=== PATIENT | female | born 1970 | race Caucasian/White ===

== ENCOUNTER 2024-03-12 09:01 | Outpatient (CLI) | payer OTHER, SELFPAY ==
[2024-03-12 09:31] VITALS: BMI 38.0
[2024-03-12 09:39] VITALS: BP 128/91; PULSE 83; RESP 18; TEMP 36.6; O2SAT 94
[2024-03-12] MEDS: METOPROLOL TARTRATE 25MG TABLET 25 MG (09:41)
[2024-03-12] MEDS: METOPROLOL TARTRATE 50MG TABLET 50 MG (09:41)
[2024-03-12] MEDS: IVABRADINE HCL 7.5MG TABLET 15 MG PO (09:41)
[2024-03-12 09:59] LABS: Chloride 103 mmol/L (98-107); Potassium 4.1 mmoL/L (3.5-5.1); Sodium 138 mmol/L (136-145)
[2024-03-12 10:02] LABS: Anion Gap 8.1 mEq/L (5-15); Blood Urea Nitrogen 8 mg/dl (7-17); Carbon Dioxide 31 mmol/L (22.0-30.0); Creatinine Clearance Estimated 163 mL/min (50-200); Estimated Glomerular Filt Rate 87 ml/min (>60); GFR (African American) 105 ML/MIN (>60); Glucose 184 mg/dl (74-100)
[2024-03-12 10:42] VITALS: PULSE 70
[2024-03-12] MEDS: METOPROLOL TARTRATE 50MG TABLET *IVABRADINE+METOPROLOL REGIMINE 50 MG PO (10:42)
[2024-03-12] MEDS: SODIUM CHLORIDE 0.9% 10ML SYR (RAD ONLY) 10 ML IV (12:04)
[2024-03-12] MEDS: 0.9 % SODIUM CHLORIDE 50 ML VIAL IV (12:04)
[2024-03-12] MEDS: IOPAMIDOL-370 (76%);100ML BOTTLE 85 ML IV (12:04)
[2024-03-12] MEDS: NITROGLYCERIN 0.4MG SL TABLET 0.8 MG SL (12:08)
== END 2024-03-12 12:00 | disposition home or self-care (01) ==
PROVIDERS: PCP Registered Nurse; Visit Provider Registered Nurse
DX: R07.9 Chest pain, unspecified (principal)
CPT/HCPCS: 75574; 80048; Q9967

== ENCOUNTER 2024-09-17 10:03 | Day surgery (SDC) | payer OTHER, SELFPAY ==
[2024-09-17 10:23] VITALS: BP 138/67; PULSE 86; RESP 16; TEMP 36.6; O2SAT 92; BMI 39.2
--- NOTE | 2024-09-17 10:34 | P.PCN_ITS ---
Procedure Date: 09/17/24 Time: 11:05 Anesthesiologist:: Toshia Flaherty APRN Complications:: None Pre-procedure Diagnosis:: Degenerative disc disease of lumbar spine with lumbar radiculopathy symptoms Post-procedure Diagnosis:: Same Indications for Procedure:: Patient is a pleasant 53-year-old female who presents today for intrathecal refill and reprogram as well as new patient to our office. Patient is a transfer from [facility] office that was previously in [place]. Today she rates her pain a 6 out of 10. She denies any new trauma or injury. She does state that she has longstanding chronic back pain both in her neck and her low back. She states she had 4 previous back surgeries and then had a disc surgery in her cervical spine. She states there was even a period of 8 months where she could not even walk. She does state that the pump has been a game changer and she would not be able to survive without it. Patient does make mention when she had her intrathecal pain pump trial she was very sensitive to the opioid medication and was told she was opioid na?ve. Patient states that even after she had her pump implanted she was very sick even with the starting dose. Patient is on very low dose of her pump medication and states this works well for her. Patient does state that it has been a while since she has had her pump refilled and believes that is a good reason why her pain is the 6 out of 10 today. She states that she cannot tell a difference when her pump medication needs to be refilled. Patient has not been refilled since around March 2024. She is currently managed with morphine 1 mg/mL with a daily dose of 0.05 mg/day. She denies any side effects from this medication. Her Ky was unavailable at today's visit. Physical Exam: General: Alert and oriented x3, no acute distress, pleasant and cooperative Lungs: Respirations even and unlabored, symmetrical chest expansion Eyes: PERRL Musculoskeletal: Flexion and extension of lumbar [spine] somewhat guarded secondary to pain, [antalgic gait noted] Neurological: Speech clear, no gross sensory deficit Procedure Details:: Informed consent was obtained and the risk and benefits of the procedure were explained to the patient. The patient had noninvasive monitoring placed including noninvasive blood pressure cuff and pulse oximeter. Patient's pump was interrogated. The area over the pump was cleansed with chlorhexidine as a cleansing solution. In sterile fashion the pump was accessed with a 22-gauge needle. Approximately 9.3 mls of the pump solution was removed and discarded appropriately. The pump was then refilled with 20 mL's of morphine 1 mg/mL. The needle was withdrawn and a bandage was placed over the puncture site. The infusion rate was reprogrammed and continued at morphine 0.05 mg/day. The patient tolerated well with no complication. Plan and Disposition:: Patient tolerated the procedure well with no complications and was discharged neurologically intact. I will order the patient a compounded cream. Patient will return to clinic on or before their next intrathecal refill date. We will see the patient back in the clinic at the next intrathecal refill. Patient has been instructed to contact the clinic with any concerns before the next appointment. Dr. Goodrich has reviewed this note and agrees with this plan of care. This note was dictated using voice recognition software and make contain errors or omissions. -- It Is medically necessary for this patient to continue to have their intrathecal pump refilled at regular intervals. This patient had an intrathecal pain pump implanted after meeting criteria of chronic intractable pain for greater than 3 months and failing conservative treatments. Patient has committed and been compliant to the treatment plan and all planned follow up care. Since implantation of the intrathecal pain pump, the patient has had decreased pain and been more functional. Oral medications have been reduced including intake of oral opioids. Patient continues to do well with intrathecal therapy with decrease in pain symptoms and increase in functional status. Stopping intrathecal medications can lead to life threatening withdrawal, seizures, cardiac arrest, severe pain, and possible . Pumps that are not refilled at regular intervals can be damages and cause and need for replacement. We continua lly titrate dose and concentration to optimize pain relief and function. We are limited in concentration for certain drugs to safely deliver medications through the pump and stay within the recommendations from the Polyanalgesic Consensus Committee Guidelines. Depending on dose and concentration these pumps may need to be refilled sooner than 3 months as we titrate. A UDS is needed to verify patient's compliance with our office pain contract. This is ordered based off specific treatments related to chronic pain with the potential to abuse certain medications.
[2024-09-17 10:44] VITALS: BP 141/78; PULSE 88; RESP 18; O2SAT 93
[2024-09-17 10:55] VITALS: BP 141/78; PULSE 88; RESP 18; O2SAT 93
[2024-09-17 11:13] VITALS: BP 137/67; PULSE 82; RESP 16; O2SAT 90
== END 2024-09-17 11:13 | disposition home or self-care (01) ==
PROVIDERS: Visit Provider Nurse Practitioner Family
DX: M51.16 Intervertebral disc disorders with radiculopathy, lumbar region (principal)
CPT/HCPCS: 62370; 99202; G0463

== ENCOUNTER 2024-12-24 08:48 | Day surgery (SDC) | payer OTHER, SELFPAY ==
--- NOTE | 2024-12-24 08:51 | P.HP_ITS ---
History of Present Illness *Admission Date: 12/24/24 *Reason for visit:: Intrathecal refill; DDD *History of present illness: Degenerative disc disease [facility] Disclaimer: The information contained in this section may have been updated after the patient was seen, as this information can be updated by other users. Medical History (Updated 12/24/24 @ 08:53 by Toshia Flaherty APRN) Trigger finger of right hand Trigger finger of right thumb Hyperlipidemia Surgical History History of lumbar fusion History of hysterectomy History of thyroidectomy, total History of cholecystectomy History of section Family History Father History of CAD (coronary artery disease) Mother Family history of hypertension Mother Family history of hyperlipidemia Social History Smoking Status: Former smoker alcohol intake: never current occupational status: employed Travel in the last 8 weeks?: None Have you lived/traveled outside [place] in past 30 days?: No Contact w/someone who lives/traveled outside [place] past 30 days?: No Exposure to someone with infectious disease in past 14 days?: No Do you have a fever (greater than 100.4 F or 38 C)?: No Have you tested positive for COVID-19?: No Exposed to someone with COVID-19 in past 14 days?: No Do you have a sore throat?: No Do you have a cough?: No Do you have any weakness?: No Do you have any diarrhea?: No Are you experiencing any unusual bleeding?: No Do you have any muscle aches/pain?: No Do you have any abdominal pain?: No Are you experiencing loss of taste or smell?: No Other Medical History Have you received the Flu Vaccine for this season: No Have you received the Pneumonia Vaccine: No Review of Systems Review of Systems Review of systems:: pertinent systems reviewed and negative unless documented below Review of systems (narrative): Review of Systems: General: No recent weight changes, no fever, no sleep disturbances Respiratory: No cough, no shortness of air, no recurring pulmonary infections Cardiovascular/peripheral vascular: No chest pain, no palpitations, no edema, no shortness of breath Gastrointestinal: No new onset incontinence, normal bowel movements reported Genitourinary: No new onset incontinence Musculoskeletal: Chronic back pain Psychiatric: [Normal mood/affect] Neurological: [Denies weakness in extremities], [denies balance issues] Meds Home Medications and Allergies Home Medications ?Medication ?Instructions ?Recorded ?Confirmed ?Type levothyroxine 300 mcg tablet 300 mcg PO DAILY 03/12/24 09/17/24 History (Synthroid) rosuvastatin 20 mg tablet 20 mg PO DAILY 03/12/24 09/17/24 History New Prescriptions to Start Prescriptions: Allergies Allergy/AdvReac Type Severity Reaction Status Date / Time amoxicillin (From Augmentin) Allergy Severe Hives Verified 03/12/24 10:08 avocado Allergy Severe Hives Verified 03/12/24 10:08 clavulanic acid (From Allergy Severe Hives Verified 03/12/24 10:08 Augmentin) Exam Constitutional Constitutional: no acute distress *Routine HEENT Exam Head: Present normocephalic and atraumatic Eye: Present PERRL ENT: Present mucous membranes moist *Routine Neck Exam Neck: Present supple *Routine Respiratory Exam Respiratory: Present CTA bilaterally *Routine Cardiovascular Exam Cardiovascular: Present RRR *Routine Abdominal Exam Abdominal: Present soft *Routine Rectal Exam Rectal:: deferred *Routine Genitalia Exam Genitalia:: normal female Routine Back/Spine/Pelvis Exam Back/Spine: Present pain with flexion *Routine Skin Exam Skin: Present intact and warm *Routine Neurological Exam Neurological: Present alert and oriented X3 Routine Psychiatric Exam Psychiatric: Present normal affect Assessment and Plan *Assessment and plan (1) Chronic pain syndrome: Status: Acute Category: Medical Code(s): G89.4 - Chronic pain syndrome (2) Degenerative disc disease: Status: Acute Category: Medical Plan Patient has been instructed to contact the clinic with any concerns before the next appointment. Dr. Goodrich has reviewed this note and agrees with this plan of care. This note was dictated using voice recognition software and make contain errors or omissions. All injections are used with Lidocaine, Bupivacaine and dexamethasone. Occasionally urine drug screen is needed to verify patient's compliance with our office pain contract. This is ordered based off specific treatments related to chronic pain with the potential to abuse certain medications.
--- NOTE | 2024-12-24 08:53 | P.PCN_ITS ---
Procedure Date: 12/24/24 Time: 09:11 Anesthesiologist:: Toshia Flaherty APRN Complications:: None Pre-procedure Diagnosis:: Degenerative disc disease of lumbar spine history of lumbar fusion, chronic pain syndrome Post-procedure Diagnosis:: Same Indications for Procedure:: Patient is a pleasant 54-year-old female who presents today for intrathecal refill and reprogram. Today she rates her pain today 7 out of 10. She denies any new trauma or injury. She does state that she would like some adjustment if possible however in the past she has been very sensitive to this medication and only wants to go up a very small amount. Patient is currently managed with morphine 1 mg/mL with a daily dose of 0.05 mg/day. She denies any side effects to that medication. Her Ky is currently not available. Physical Exam: General: Alert and oriented x3, no acute distress, pleasant and cooperative Lungs: Respirations even and unlabored, symmetrical chest expansion Eyes: PERRL Musculoskeletal: Flexion and extension of lumbar [spine] somewhat guarded secondary to pain, [antalgic gait noted] Neurological: Speech clear, no gross sensory deficit Procedure Details:: Informed consent was obtained and the risk and benefits of the procedure were explained to the patient. The patient had noninvasive monitoring placed including noninvasive blood pressure cuff and pulse oximeter. Patient's pump was interrogated. The area over the pump was cleansed with chlorhexidine as a cleansing solution. In sterile fashion the pump was accessed with a 22-gauge needle. Approximately 14.4 mls of the pump solution was removed and discarded appropriately. The pump was then refilled with 20 mL's of morphine 1 mg/mL. The needle was withdrawn and a bandage was placed over the puncture site. The infusion rate was reprogrammed and increased 2% morphine 0.051 mg/day. The patient tolerated well with no complication. Plan and Disposition:: Patient tolerated the procedure well with no complications and was discharged neurologically intact. Patient will return to clinic on or before their next intrathecal refill date. We will see the patient back in the clinic at the next intrathecal refill. Jennifer ent has been instructed to contact the clinic with any concerns before the next appointment. Dr. Goodrich has reviewed this note and agrees with this plan of care. This note was dictated using voice recognition software and make contain errors or omissions. -- It Is medically necessary for this patient to continue to have their intrathecal pump refilled at regular intervals. This patient had an intrathecal pain pump implanted after meeting criteria of chronic intractable pain for greater than 3 months and failing conservative treatments. Patient has committed and been compliant to the treatment plan and all planned follow up care. Since implantation of the intrathecal pain pump, the patient has had decreased pain and been more functional. Oral medications have been reduced including intake of oral opioids. Patient continues to do well with intrathecal therapy with decrease in pain symptoms and increase in functional status. Stopping intrathecal medications can lead to life threatening withdrawal, seizures, cardiac arrest, severe pain, and possible . Pumps that are not refilled at regular intervals can be damages and cause and need for replacement. We continually titrate dose and concentration to optimize pain relief and function. We are limited in concentration for certain drugs to safely deliver medications through the pump and stay within the recommendations from the Polyanalgesic Consensus Committee Guidelines. Depending on dose and concentration these pumps may need to be refilled sooner than 3 months as we titrate. A UDS is needed to verify patient's compliance with our office pain contract. This is ordered based off specific treatments related to chronic pain with the potential to abuse certain medications.
[2024-12-24 08:59] VITALS: BP 129/55; BP 141/83; PULSE 85; PULSE 87; RESP 16; RESP 18; O2SAT 91; O2SAT 95; BMI 39.2
[2024-12-24 09:16] VITALS: BP 120/71; PULSE 79; RESP 16; O2SAT 90
== END 2024-12-24 09:16 | disposition home or self-care (01) ==
PROVIDERS: PCP Nurse Practitioner Family; Visit Provider Nurse Practitioner Family
DX: G89.4 Chronic pain syndrome (principal); M51.369 Other intervertebral disc degeneration, lumbar region without mention of lumbar back pain or lower extremity pain; M43.26 Fusion of spine, lumbar region
CPT/HCPCS: 62370; 99221